=== PATIENT | female | born 1970 | race African-American/Black ===

== ENCOUNTER 2019-05-02 12:27 | Emergency (ER) | payer MEDICAID, OTHER ==
[~2019-05-02] VITALS: Ht 160 cm; Wt 74.0 kg
[~2019-05-02 12:27] MED LIST: ALBU2TAB4; HCTZ PO; LISI-652 PO; VERA240C2 PO
[2019-05-02] MEDS ORDERED: KETOROLAC 60MG/2ML VIAL IM STA (14:03)
[2019-05-02 14:26] VITALS: BP 160/90
== END 2019-05-02 16:40 | disposition home or self-care (01) ==
LOC: ER 12:27
DX: S40.012A Contusion of left shoulder, initial encounter (principal); S80.02XA Contusion of left knee, initial encounter; S80.01XA Contusion of right knee, initial encounter; R07.89 Other chest pain; S70.02XA Contusion of left hip, initial encounter; V03.00XA Pedestrian on foot injured in collision with car, pick-up truck or van in nontraffic accident, initial encounter; Y93.89 Activity, other specified; Y92.480 Sidewalk as the place of occurrence of the external cause
CPT/HCPCS: 71045; 73030; 73502; 73560; 81025; 96372; 99283; J1885